=== PATIENT | female | born 1970 | race Caucasian/White ===

== ENCOUNTER 2018-12-09 14:39 | Emergency (ER) | payer BC, SELFPAY ==
[2018-12-09 14:40] VITALS: BP 104/61; PULSE 77; RESP 16; TEMP 37; O2SAT 99; BMI 20.9
[2018-12-09] MEDS: Diphth,Pertuss(Acell),Tet Vac 0.5 ML Vial IM (15:23)
--- NOTE | 2018-12-09 15:36 | ED.VISSUMM ---
- ER Visit Summary Date of Service: 12/09/18 Chief Complaint: Finger laceration History of Present Illness: The patient is a 48 F fcziw-pips-ejzcygrj presents to the emergency department with a laceration to the right fourth finger. This occurred just prior to arrival while she was using a trimmer press clippings at her home. She has no other injuries. She has no numbness tingling or weakness. She is not on blood thinners. She does not remember when her last tetanus immunization was. Physical Examination: Well-nourished well-developed normocephalic atraumatic heart is regular rate and rhythm abdomen soft nontender nondistended lungs are clear bilaterally chest is nontender. Patient has a 1.5 cm laceration right fourth finger on the finger pad. No active bleeding. Normal capillary refill and sensation. Normal two-point discrimination. Normal flexion and extension actively at the MCP, PIP, DIP. Test Results: n/a Emergency Department Course and Treatment: Tetanus update. No sterile conditions with Shur-Clens prep lidocaine used for anesthesia with a digital block right fourth finger. Wound thoroughly irrigated under the tap. Cleansing and Shur-Clens. Sutures were placed for a total of 2 per 5-0 nylon. Dressing applied. Treatment Plan: Follow-up PCP in 1 week for suture removal. Proper wound care and signs of infection patient needs to monitor for. Disposition: Charge to home in improved condition Impression: Laceration right fourth finger This note was generated with [employer] dictation software. It may contain incorrect words, spelling, and punctuation that were not noted in review of the chart prior to signing ED Disposition - Plan for ED Patient: Referrals: Rahul Vieyra MD [Primary Care Provider] -
--- NOTE | 2018-12-09 15:40 | ED.DCSUM_ITS ---
- ER Visit Summary Date of Service: 12/09/18 Chief Complaint: Finger laceration History of Present Illness: The patient is a 48 F gixsc-wtip-xjtajzxc presents to the emergency department with a laceration to the right fourth finger. This occurred just prior to arrival while she was using a hat trimmer at her home. She has no other injuries. She has no numbness tingling or weakness. She is not on blood thinners. She does not remember when her last tetanus immunization was. Physical Examination: Well-nourished well-developed normocephalic atraumatic heart is regular rate and rhythm abdomen soft nontender nondistended lungs are clear bilaterally chest is nontender. Patient has a 1.5 cm laceration right fourth finger on the finger pad. No active bleeding. Normal capillary refill and sensation. Normal two-point discrimination. Normal flexion and extension actively at the MCP, PIP, DIP. Test Results: n/a Emergency Department Course and Treatment: Tetanus update. No sterile conditions with Shur-Clens prep lidocaine used for anesthesia with a digital block right fourth finger. Wound thoroughly irrigated under the tap. Cleansing and Shur-Clens. Sutures were placed for a total of 2 per 5-0 nylon. Dressing applied. Treatment Plan: Follow-up PCP in 1 week for suture removal. Proper wound care and signs of infection patient needs to monitor for. Disposition: Charge to home in improved condition Impression: Laceration right fourth finger This note was generated with [employer] dictation software. It may contain incorrect words, spelling, and punctuation that were not noted in review of the chart prior to signing ED Disposition - Plan for ED Patient: Referrals: Rahul Vieyra MD [Primary Care Provider] -
--- NOTE | 2018-12-09 15:41 | ED.DEP ---
ED Disposition - Plan for ED Patient: Disposition: Home or Assisted Living Diagnosis: Finger laceration Instructions: ED Laceration Ext Sutr Stap Tape Referrals: Rahul Vieyra MD [Primary Care Provider] -
[2018-12-09 15:45] VITALS: RESP 15
[2018-12-09] MEDS: BACITRACIN 15 GM Tube 1 APPLIC TOPICAL (15:48)
[2018-12-09 16:09] VITALS: PULSE 65; RESP 15
== END 2018-12-09 16:11 | disposition home or self-care (01) ==
PROVIDERS: Emergency Provider Physician Assistant Medical; Family Provider Family Medicine; PCP Family Medicine
DX: S61.214A Laceration without foreign body of right ring finger without damage to nail, initial encounter (principal); W27.8XXA Contact with other nonpowered hand tool, initial encounter; Y93.9 Activity, unspecified; Y92.9 Unspecified place or not applicable; Y99.9 Unspecified external cause status; Z23 Encounter for immunization; I10 Essential (primary) hypertension; K21.9 Gastro-esophageal reflux disease without esophagitis
CPT/HCPCS: 12001; 90471; 90715; 99283

== ENCOUNTER 2020-10-30 07:23 | Outpatient (RCR) | payer BC, SELFPAY | END 2020-12-09 23:59 | LOC: IMMUN 07:23 | PROVIDERS: PCP Family Medicine; Referring Provider Family Medicine; Visit Provider Family Medicine | DX: Z23 Encounter for immunization (principal) | CPT/HCPCS: 0001A; 0002A; 91300 ==

== ENCOUNTER 2021-01-12 10:46 | Day surgery (SDC) | payer BC, SELFPAY ==
[2021-01-12] VITALS (8 sets, daily range): BP systolic 69–93; BP diastolic 39–61; PULSE 58–71; RESP 16; TEMP 36.3–37.3; O2SAT 90–100; BMI 21.3
[2021-01-12] MEDS: Lactated Ringers 1,000 ML 100 ML IV (11:40)
--- NOTE | 2021-01-12 11:47 | HP.PCM_ITS ---
History and Physical Date of Admission: 01/12/21 HISTORY AND PHYSICAL ? Rubydru Freire 1970 ? REFERRING PHYSICIAN: Dominick, ? CHIEF COMPLAINT: Consult ? HPI: The patient is a 50 year old female referred for endoscopy. Patient has been following with Dr. Eugene Silvestre in Gastroenterology for chronic loose stools. She has been advised to have colonoscopy and was wanting this done closer to home, was referred to our [place] general surgery office. ? Ruby notes she has been experiencing loose stools x approximately 1 year. M ore recently in the last week she is noting increased cramping. Patient denies any weight changes, blood in stools, black tarry stools. Denies family history of colon issues. She notes she has been diagnosed with gastriparesis in the past. ? ? Ruby has undergone prior EGD under anesthesia in 2018, reviewed. Notes state she underwent endoscopic pyloromyotomy at that time. She had a colonoscopy in [address] Lazo at [facility] without concerning findings. ? Patient's past medical history is significant for stroke, multiple sclerosis, thyroid cancer, sleep apnea, depression. She follows with Dr. Vieyra in primary care. ? PAST MEDICAL HISTORY PAST MEDICAL HISTORY Diagnosis Date ? Acute, but ill-defined, cerebrovascular disease 04/2000 ? Arteritis, unspecified (HCC) ? ? Conjunctivitis ? ? H/O RECURRENT ? Depression ? ? Multiple sclerosis (HCC) ? ? Obstructive sleep apnea 09/29/2010 ? cpap at night ? Optic neuritis ? ? 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 Thyroid cancer (HCC) 09/24/2010 ? ? PAST SURGICAL HISTORY PAST SURGICAL HISTORY Procedure Laterality Date ? APPENDECTOMY ? ? ? BLEPHAROPLASTY LOWER LID ? 2011 ? Dr. Freire ? BREAST BIOPSY W/ULTRASOUND GUIDANCE Right 09/01/15 ? U/S mammotome 9 Oclock right breast density ? COLONOSCOPY W/BX ? 01/26/2017 ? Normal colon-normal terminal ileum-10 year follow up for screening ? EGD N/A 11/2017 ? POP Endoscope ? EGD W/O [facility] SPECIMEN W/BX ? 01/26/2017 ? Reflux changes, otherwise unremarkable biopsies ? EXC BENIGN TUMOR SUBCUT ? ? ? EYE SURGERY PROCEDURE ? 11/03/12 ? EXCISION & REPAIR OF > 1/4 OF EYELID W/GRAFT (Bilateral) ? FNA WITH IMAGING ? 08/18/06 ? U/S FNA bilateral thyroid nodules ? FNA WITH IMAGING ? 08/19/10 ? U/S FNA bilateral thyroid nodules ? I & D ABSCESS, SINGLE ? 03/23/11 ? I&D chin abscess ? LAP CHOLECYSTECT/CHOLANGIOGRAPHY ? 02/16/2017 ? normal IOC ? PAST SURGICAL HISTORY OF ? 7-5-12 ? PROBING NASOLACRIMAL DUCT W/ BALLOON CATHETER DILATION (Bilateral ? REM LESION FACE,EAR,EYEL <5MM ? 05/01/11 ? Exc. chin skin lesion ? REMOVAL ADENOIDS,PRIMARY,<12 Y/O ? ? ? Adenoidectomy ? THYROIDECTOMY ? 09-16-10 ? TOTAL ? ? ? CURRENT MEDICATIONS Current Outpatient Medications Medication Sig ? Bisacodyl (DULCOLAX) 5 mg tab Use as directed for Miralax / Gatorade Bowel Prep Kit ? dicyclomine (BENTYL) 10 mg capsule Take 1 capsule by mouth before meals and at bedtime. ? levothyroxine (SYNTHROID) 200 mcg tablet Take 1.5 tablets by mouth once daily. ? amphetamine-dextroamphetamine XR (ADDERALL XR) 10 mg 24 hr capsule Take 1 capsule by mouth once daily for 30 days. Do not start before November 10, 2020. ? potassium chloride ER (KLOR-CON M20) 20 mEq tablet Take 1 tablet by mouth twice daily. ? cycloSPORINE (RESTASIS) 0.05 % ophthalmic emulsion Use 1 Drop in both eyes twice daily. ? hyoscyamine sublingual (LEVSIN/SL) 0.125 mg Dissolve 1 tablet under the tongue four times daily as needed. ? rOPINIRole (REQUIP) 0.25 mg tablet Take 1 tablet by mouth daily at bedtime. ? buPROPion SR (WELLBUTRIN SR) 100 mg 12 hr tablet Take 1 tablet by mouth once daily. ? verapamil (CALAN, ISOPTIN) 40 mg tablet Take 1 tablet by mouth three times daily. ? citalopram (CELEXA) 40 mg tablet Take 1 tablet by mouth once daily. ? pantoprazole DR (PROTONIX) 40 mg tablet Take 1 tablet by mouth once daily. ? abaloparatide (TYMLOS) 80 mcg (3,120 mcg/1.56 mL) Inject 80mcg subcutaneously once daily. ? magnesium oxide 400 mg cap Take 400 mg by mouth once daily. ? cholecalciferol (VITAMIN D3) 1,000 unit tab Take 1 tablet by mouth twice daily. ? MULTIVITAMIN TAB Take one(1) tablet daily. ? COENZYME Q10 200 MG ORAL TAB 1 po qd ? polyethylene glycol 3350 (MIRALAX, GLYCOLAX) 17 gram/dose powder Use as directed for Miralax / Gatorade Bowel Prep Kit (Patient not taking: Reported on 12/02/2020 ) ? Gatorade Sports Drink Use as directed for Miralax / Gatorade Bowel Prep Kit ? insulin needles, DISPOSABLE, (CLICKFINE PEN NEEDLE) 31 gauge x 5/16 1 Each once daily. ? gabapentin (NEURONTIN) 300 mg capsule Take 2 capsules by mouth daily at bedtime for 180 days. ? CPAP ? ? Current Facility-Administered Medications Medication Dose Route Frequency ? perflutren lipid microspheres 1.3 mL in NaCl (PF) 0.9% 10 mL injection (DEFINITY) INTRAVENOUS DIRECTED PRN ? sodium chloride 0.9 % (flush) 10 mL (BD POSIFLUSH) 10 mL INTRAVENOUS DIRECTED PRN ? ? ALLERGIES: Patient has no known allergies. ? PERSONAL HISTORY: SOCIAL HISTORY Social History ? Tobacco Use ? Smoking status: Former Smoker ? ? Packs/day: 1.00 ? ? Years: 8.00 ? ? Pack years: 8.00 ? ? Types: Cigarettes ? ? Quit date: 06/15/1999 ? ? Years since quittin.4 ? Smokeless tobacco: Never Used Vaping Use ? Vaping Use: Never used Substance Use Topics ? Alcohol use: No ? Drug use: No ? FAMILY HISTORY: FAMILY HISTORY FAMILY HISTORY Problem Relation Age of Onset ? COPD Father ? ? Coronary Artery Disease Father ? ? Hypertension Father ? ? Cataract Father ? ? Diabetes Maternal Grandmother ? ? other (healthy) Mother ? ? other (healthy) Sister ? ? 2 sisters ? ? REVIEW OF SYMPTOMS: The review of systems data was entered by the nurse and reviewed by me ? Nursing Notes: Damaso Grajeda LPN 12/08/2020 8:56 AM Signed REVIEW OF SYSTEMS: General: The patient denies fatigue, denies weight loss, denies weight gain, denies feeling hot, and denies feelings of cold. Eyes: The patient denies glaucoma, denies eye injury/surgery, wears glasses or contacts. Ear/Nose/Throat: The patient denies allergies, denies hayfever, denies ear infections, and denies bloody noses. Cardiovascular: The patient denies chest pain, denies heart disease, denies high blood pressure,denies cardiac stent, denies prior heart attack, denies irregular heart beat, denies high cholesterol, denies poor circulation, denies heart failure, other cardiac issues, denies claudication, denies cold feet, denies peripheral arterial stent. Respiratory: The patient denies tuberculosis, denies pneumonia, denies frequent cough, denies pulmonary embolism, denies shortness of breath, and denies coughing up blood. Gastrointestinal: The patient denies difficulty swallowing, NOTES acid reflux, denies ulcers, denies vomiting, denies jaundice/hepatitis, NOTES gallbladder problems, denies black or tarry stools, denies hemorrhoids, denies bleeding from rectum, denies diverticulitis, NOTES constipation, NOTES diarrhea, denies loss of stool control, and denies hernias. Kidney/Bladder: The patient denies kidney stones, denies urine infections, and denies bloody urine. Skin: The patient denies a history of skin cancer, denies bleeding/kirkpatrick ging moles, and denies a history of skin rash. Neurologic: The patient denies a history of epilepsy/convulsions, NOTES headaches, denies head/spinal injuries, and NOTES stroke/TIA. Psychiatric: The patient denies psychiatric medications, NOTES depression, and denies voices, denies substance abuse. Endocrine: The patient NOTES thyroid disorders, denies diabetes, and denies hormonal problems. Hematologic: The patient denies a history of bruising, denies bleeding, and denies anemia, denies blood clots. Infections: The patient denies a history of measles and mumps, denies rheumatic fever, and denies sexually transmitted diseases. Musculoskeletal: The patient denies back pain/injury, denies back problems, denies sciatica, denies knee/foot trouble, denies arthritis, or denies gout. ? ? When was patient's last Mammogram screening? 03/2019 ? Last Colonoscopy: N/A ? Damaso Grajeda LPN I have confirmed and edited as necessary, the PFSH and ROS obtained by others. ? ? PHYSICAL EXAMINATION: ? General: The patient is 50 year old female, well nourished, well hydrated in no acute distress. The patient is oriented to time, place, and person. ? VITALS: Blood pressure 92/58, pulse 97, temperature 37.7 ?C (99.8 ?F), temperature source Temporal, resp. rate 16, height 167.6 cm (5' 6), weight 63.3 kg (139 lb 9.6 oz), last menstrual period 07/09/2013, SpO2 97 %. Body mass index is 22.53 kg/m?. ? HEENT: Normal cephalic, ataumatic, pupils are equally round, sclera are anicteric, mucous membranes are moist, oropharynx is clear. Neck has no masses, asymmetry or lymphadenopathy. ? Respiratory: Clear to auscultation and percussion. Normal respiratory excursion and pattern. ? Cardiac: Examination is regular rate and rhythm. Normal S1/S2 ? Abdominal exam: Soft, nontender, with no palpable masses. No hepatosplenomegaly. No palpable hernias. ? Extremities: no clubbing, cyanosis or edema. No adenopathy. ? LABORATORY VALUES: As Noted ? RADIOLOGIC STUDIES: As Noted ? Assessment IMPRESSION: chronic diarrhea ? PLAN: I have reviewed my findings with the surgeon. Will plan for upper and lower endoscopy with random biopsies. We discussed the risks and benefits of the planned endoscopy. I have informed the patient that complications can occur including failure to complete the endoscopy and perforation. The patient had the opportunity to ask questions concerning the planned endoscopy. My staff has also explained the procedure to the patient in understandable terms and has given the patient printed material concerning the procedure. The patient freely consents to surgery. ? The patient was offered a surgery/procedure at a [facility] facility. I have counseled the patient regarding the risk of exposure to and/or potential harm posed by the COVID-19 virus with having a surgery/procedure at this time versus the risk of? delaying the surgery/procedure. It is not possible to know either the risk of delaying the surgery or procedure or chance of getting an infection with perfect accuracy, but a joint decision was made between the patient and myself?to proceed at this time with endoscopy. ? Patient requesting [facility] for the procedure ? We will plan for random biopsies ? I plan to use Miralax bowel preparation ? The patient takes prescription medications which I feel decrease the chance of successful sedation, therefore we will plan for procedure to be done under Monitored Anesthetic Care. ? ? ? Diagnoses: (K52.9) Chronic diarrhea (primary encounter diagnosis) (R19.4) Change in bowel habits (R10.9) Abdominal cramping ? I spent a total of 40 minutes on the date of the service which included preparing to see the patient, [id number] patient care, completing clinical documentation, obtaining and/or reviewing separately obtained history, performing a medically appropriate examination, counseling and educating the patient/family/caregiver, ordering medications, tests, or procedures and communicating with other HCPs (not separately reported). ? ? Leatha Salas PA-C I have re-examined the patient. There are no clinical changes since date of exam.
--- NOTE | 2021-01-12 12:00 | IMM_PTH ---
PATIENT: ALISON YEE LOC: EN U#:[id number] AGE/SX: 51/F ROOM: RE01/12/[address]: Dr. Zac Sykes MD : 1970 BED: DIS: 01/12/2021 SPEC #: [id number] RECD: 01/13/21 09:03 STATUS: CARITO REEricka #: [id number] KALIE: 01/12/21 12:[address]: Zac Sykes DEPT: IMMUNOHISTOCHEMISTRY RECD BY: Hannah Ellis ENTERED: 01/13/21 09:03 SP TYPE: IMMUNO OTHR DR: Dr. Rahul Vieyra MD Tissues: B - Abdomen, NOS Procedures: H Pylori (initial) PHYSICIAN & INSTITUTION [place] [id number] SPECIMEN INFORMATION: Tissue Source: B ? Antrum biopsy Clinical Info: Chronic diarrhea Specimen Number: [id number] CPT code: 84184 METHODOLOGY: Deparaffinized sections of prefer/formalin-fixed tissue or PAP/DQ stained slides are incubated with monoclonal/polyclonal antibodies/oligonucleotide probes. Localization is made via biotin free immunoperoxidase method. Appropriate controls are performed and reacted as expected. Results on target cell population are indicated in the following table: RESULTS: ANTIBODY / CLONE RESULT Block B H Pylori (polyclonal) negative These tests were developed and their performance characteristics determined by [facility]. They may not have been cleared or approved by the U.S. Food and Drug Administration. The FDA has determined that such clearance or approval is not necessary. INTERPRETATION: B. Antrum biopsy: Negative for Helicobacter pylori organisms. AM:wesley 01/14/2021
--- NOTE | 2021-01-12 12:00 | COLBX_PTH ---
PATIENT: ALISON YEE LOC: EN U#:[id number] AGE/SX: 51/F ROOM: RE01/12/[address]: Dr. Zac Sykes MD : 1970 BED: DIS: 01/12/2021 SPEC #: [id number] RECD: 01/12/21 13:31 STATUS: CARITO CRYSTAL #: [id number] KALIE: 01/12/21 12:[address]: Zac Sykes DEPT: SURGICAL PATHOLOGY RECD BY: Grace Luna ENTERED: 01/13/21 08:27 SP TYPE: COLON BX OTHR DR: Dr. Rahul Vieyra MD Tissues: A - Duodenum, NOS B - Gastric mucous membrane C - COLON BIOPSY Procedures: Trichrome (control) Special Stain Group II Surgery Specimen Level IV HEADER OPERATION: [place] DIAGNOSIS: Chronic diarrhea TISSUE SUBMITTED: A ? Duodenum biopsy, B ? Antrum biopsy, C ? Random colon biopsies MICROSCOPIC DIAGNOSIS A. Duodenum, biopsy: Mild nonspecific chronic inflammation. B. Gastric antrum, biopsy: Chronic gastritis. See comment. C. Colon, random biopsy: Minimal acute colitis. See comment. AM:wesley 01/14/2021 COMMENT B. The results of immunohistochemistry for Helicobacter pylori will be reported separately ([id number]). C. Clinical correlation is suggested. Trichrome stain with matched control was used in the evaluation of this case. MICROSCOPIC DESCRIPTION Slides are reviewed. C. Sections show rare neutrophils and glandular crypts with rare microabscess. GROSS DESCRIPTION A - Received in fixative is one container labeled with the patient's name and designated duodenum. The specimen consists of one irregular fragment of light aaron soft tissue that measures 0.2 x 0.2 x 0.1 cm. The specimen is totally submitted in one cassette. B - Received in fixative is one container labeled with the patient's name and designated antrum biopsy. The specimen consists of one irregular fragment of light aaron soft tissue that measures 0.3 x 0.3 x 0.1 cm. The specimen is totally submitted in one cassette. C - Received in fixative is one container labeled with the patient's name and designated random colon biopsy. The specimen consists of multiple irregular fragments of light aaron soft tissue that in aggregate measure 2.5 x 1 x 0.1 cm. The specimen is totally submitted in one cassette. / AM:wesley 01/13/21 TC:3 CPT: 56010 x3, 33062
--- NOTE | 2021-01-12 12:40 | OP.CCLET_ITS ---
01/12/2021 Rahul Vieyra [address] [place] [address] Re : Upper GI endoscopy procedure for Ruby Freire Dear Dr. Vieyra This procedure was performed on Tuesday, January 12, 2021. My impressions and recommendations are as follows: Impressions : - Z-line regular, 40 cm from the incisors. No specimens collected. - Gastritis. Biopsied. - Normal examined duodenum. Biopsied. Recommendations : - Await pathology results. - Repeat upper endoscopy PRN for surveillance. - Return to physician public aid eligibility assistant in 1 week. - Continue present medications. My findings are described in the full procedure note, which is enclosed. If I can be of further assistance, please feel free to contact me at Doctor phone number(s): , Fax: [phone], Work: . Sincerely, MD Zac Gunter MD 01/12/2021 12:39:45 PM This report has been signed electronically.
--- NOTE | 2021-01-12 12:40 | OP.EGD_ITS ---
Patient Name: Ruby Freire Procedure Date: 01/12/2021 11:28 AM Date of : 1970 Age: 51 Procedure: Upper GI endoscopy Indications: Endoscopy to assess diarrhea in patient suspected of having celiac disease Providers: Zac Sykes MD Medicines: See the Anesthesia note for documentation of the administered medications Patient Profile: This is a 51 year old female. Refer to note in patient chart for documentation of history and physical. Complications: No immediate complications. Procedure: Pre-Anesthesia Assessment: - Prior to the procedure, a History and Physical was performed, and patient medications and allergies were reviewed. The patient's tolerance of previous anesthesia was also reviewed. The risks and benefits of the procedure and the sedation options and risks were discussed with the patient. All questions were answered, and informed consent was obtained. Prior Anticoagulants: The patient has taken no previous anticoagulant or antiplatelet agents. ASA Grade Assessment: II - A patient with mild systemic disease. After reviewing the risks and benefits, the patient was deemed in satisfactory condition to undergo the procedure. After obtaining informed consent, the endoscope was passed under direct vision. Throughout the procedure, the patient's blood pressure, pulse, and oxygen saturations were monitored continuously. The Endoscope was introduced through the mouth, and advanced to the second part of duodenum. The upper GI endoscopy was accomplished without difficulty. The patient tolerated the procedure well. Scope In: 12:15:51 PM Scope Out: 12:18:10 PM Total Procedure Duration Time 0 hours 2 minutes 19 seconds Findings: The Z-line was regular and was found 40 cm from the incisors. No biopsies or other specimens were collected for this exam. Localized mild inflammation characterized by erythema was found in the prepyloric region of the stomach. Biopsies were taken with a cold forceps for Helicobacter pylori testing. The examined duodenum was normal. Biopsies were taken with a cold forceps for histology. Impression: - Z-line regular, 40 cm from the incisors. No specimens collected. - Gastritis. Biopsied. - Normal examined duodenum. Biopsied. Recommendation: - Await pathology results. - Repeat upper endoscopy PRN for surveillance. - Return to physician phlebotomist lab assistant in 1 week. - Continue present medications. Procedure Code(s): --- Professional --- 43627, Esophagogastroduodenoscopy, flexible, transoral; with biopsy, single or multiple Diagnosis Code(s): --- Professional --- K29.70, Gastritis, unspecified, without bleeding R19.7, Diarrhea, unspecified CPT copyright 2017 [employer] [employer]. All rights reserved. The codes documented in this report are preliminary and upon paper goods machine set up operator review may be revised to meet current compliance requirements. MD Zac Gunter MD 01/12/2021 12:39:45 PM This report has been signed electronically. Number of Addenda: 0 Note Initiated On: 01/12/2021 11:28 AM
--- NOTE | 2021-01-12 12:44 | OP.COLON_ITS ---
Patient Name: Ruby Freire Procedure Date: 01/12/2021 12:20 PM Date of : 1970 Age: 51 Procedure: Colonoscopy Indications: Clinically significant diarrhea of unexplained origin Providers: Zac Sykes MD Medicines: See the Anesthesia note for documentation of the administered medications Patient Profile: This is a 51 year old female. Refer to note in patient chart for documentation of history and physical. Last Colonoscopy: 5 years ago. Complications: No immediate complications. Procedure: Pre-Anesthesia Assessment: - Prior to the procedure, a History and Physical was performed, and patient medications and allergies were reviewed. The patient's tolerance of previous anesthesia was also reviewed. The risks and benefits of the procedure and the sedation options and risks were discussed with the patient. All questions were answered, and informed consent was obtained. Prior Anticoagulants: The patient has taken no previous anticoagulant or antiplatelet agents. ASA Grade Assessment: II - A patient with mild systemic disease. After reviewing the risks and benefits, the patient was deemed in satisfactory condition to undergo the procedure. After I obtained informed consent, the scope was passed under direct vision. Throughout the procedure, the patient's blood pressure, pulse, and oxygen saturations were monitored continuously. The colonoscope was introduced through the anus and advanced to the cecum, identified by appendiceal orifice and ileocecal valve. The colonoscopy was performed without difficulty. The patient tolerated the procedure well. The quality of the bowel preparation was adequate to identify polyps 6 mm and larger in size. Scope In: 12:21:26 PM Scope Withdrawal Time 0 hours 6 minutes 10 seconds Scope Out: 12:34:58 PM Total Procedure Duration Time 0 hours 13 minutes 32 seconds Findings: The colon (entire examined portion) appeared normal. Biopsies for histology were taken with a cold forceps from the entire colon for evaluation of microscopic colitis. Non-bleeding internal hemorrhoids were found during retroflexion. The hemorrhoids were mild and medium-sized. The exam was otherwise without abnormality. Impression: - The entire examined colon is normal. Biopsied. - Non-bleeding internal hemorrhoids. - The examination was otherwise normal. Recommendation: - Discharge patient to home. - Resume previous diet. - Continue present medications. - Await pathology results. - Repeat colonoscopy in 10 years for screening purposes. - Return to physician technician assistant in 1 week. Procedure Code(s): --- Professional --- 68936, Colonoscopy, flexible; with biopsy, single or multiple Diagnosis Code(s): --- Professional --- K64.8, Other hemorrhoids R19.7, Diarrhea, unspecified CPT copyright 2017 [employer]. All rights reserved. The codes documented in this report are preliminary and upon dna analyst review may be revised to meet current compliance requirements. MD Zac Gunter MD 01/12/2021 12:44:29 PM This report has been signed electronically. Number of Addenda: 0 Note Initiated On: 01/12/2021 12:20 PM
--- NOTE | 2021-01-12 12:45 | OP.CCLET_ITS ---
01/12/2021 Rahul Vieyra [address] [place] [address] Re : Colonoscopy procedure for Ruby Freire Dear Dr. Vieyra This procedure was performed on Tuesday, January 12, 2021. My impressions and recommendations are as follows: Impressions : - The entire examined colon is normal. Biopsied. - Non-bleeding internal hemorrhoids. - The examination was otherwise normal. Recommendations : - Discharge patient to home. - Resume previous diet. - Continue present medications. - Await pathology results. - Repeat colonoscopy in 10 years for screening purposes. - Return to physician clinical medical assistant in 1 week. My findings are described in the full procedure note, which is enclosed. If I can be of further assistance, please feel free to contact me at Doctor phone number(s): , Fax: [phone], Work: . Sincerely, MD Zac Gunter MD 01/12/2021 12:44:29 PM This report has been signed electronically.
== END 2021-01-12 13:30 | disposition home or self-care (01) ==
LOC: EN 10:49 → AC 10:50
PROVIDERS: PCP Family Medicine; Referring Provider Family Medicine; Visit Provider Surgery
PROC: 0DJD8ZZ Inspection of Lower Intestinal Tract, Via Natural or Artificial Opening Endoscopic (ICD-10-PCS; CPT 45378; principal; 2021-01-12 11:55)
DX: K52.9 Noninfective gastroenteritis and colitis, unspecified (principal); K29.70 Gastritis, unspecified, without bleeding; R19.4 Change in bowel habit; K21.9 Gastro-esophageal reflux disease without esophagitis; K64.8 Other hemorrhoids; G35 Multiple sclerosis; G47.33 Obstructive sleep apnea (adult) (pediatric); F32.9 Major depressive disorder, single episode, unspecified; F41.9 Anxiety disorder, unspecified; Z79.899 Other long term (current) drug therapy; Z78.0 Asymptomatic menopausal state; Z86.73 Personal history of transient ischemic attack (TIA), and cerebral infarction without residual deficits; Z85.850 Personal history of malignant neoplasm of thyroid; Z87.891 Personal history of nicotine dependence
CPT/HCPCS: 43239; 45380; 88305; 88313; 88342; J7120; J2405